=== PATIENT | male | born 1965 | race Caucasian/White ===

== ENCOUNTER 2024-08-03 10:48 | Outpatient (CLI) | payer OTHER | END 2024-08-03 23:59 | disposition home or self-care (01) | LOC: RAD 10:48 | PROVIDERS: ATTEND General Practice | DX: S13.9XXA Sprain of joints and ligaments of unspecified parts of neck, initial encounter (principal); M47.812 Spondylosis without myelopathy or radiculopathy, cervical region; Y92.89 Other specified places as the place of occurrence of the external cause; Y93.89 Activity, other specified; Y99.8 Other external cause status | CPT/HCPCS: 72050 ==